=== PATIENT | female | born 1960 | race Caucasian/White ===

== ENCOUNTER 2021-09-05 12:33 | Outpatient (CLI) | payer OTHER ==
[2021-09-06 08:37] LABS: SARS-CoV-2 PCR by NAA Not Detected (NotDetected)
== END 2021-09-05 12:34 | disposition home or self-care (01) ==
LOC: CSHLAB 12:33
PROVIDERS: ATTEND Internal Medicine Pulmonary Disease
DX: Z20.822 Contact with and (suspected) exposure to COVID-19 (principal)
CPT/HCPCS: U0003; U0005

== ENCOUNTER 2021-09-08 10:27 | Outpatient (CLI) | payer OTHER, SELFPAY | END 2021-09-08 10:28 | disposition home or self-care (01) | LOC: CSHCP 10:27 | PROVIDERS: ATTEND Internal Medicine Pulmonary Disease | DX: R06.00 Dyspnea, unspecified (principal); J02.9 Acute pharyngitis, unspecified | CPT/HCPCS: 94010; 94726; 94729; 94760 ==